=== PATIENT | male | born 1995 | race African-American/Black ===

== ENCOUNTER 2023-06-16 12:48 | Emergency (ER) | payer SELFPAY ==
[~2023-06-16] VITALS: Ht 182.9 cm; Wt 73.6 kg
[2023-06-16] MEDS ORDERED: LIDOCAINE 2% MDV 20ML VIAL SC ONE (13:20)
[2023-06-16] MEDS ORDERED: BACITRACIN OINTMENT 30GM TUBE TOP ONE (13:20)
[2023-06-16] MEDS ORDERED: CEPH500C PO (14:05)
[2023-06-16] MEDS ORDERED: BOOSTRIX VACCINE (TETANUS/DIPHTH/ACEL. PERTUSSIS) 0.5ML SYR IM.IMMUN ONE (14:05)
[2023-06-16 14:28] VITALS: BP 131/101; TEMP 98.8; O2SAT 97
[2023-06-18] MEDS ORDERED: ACET-907 PO (11:45)
== END 2023-06-16 14:32 | disposition home or self-care (01) ==
LOC: M ED 12:48
DX: S61.214A Laceration without foreign body of right ring finger without damage to nail, initial encounter (principal); Y28.0XXA Contact with sharp glass, undetermined intent, initial encounter; Z79.1 Long term (current) use of non-steroidal anti-inflammatories (NSAID); Z23 Encounter for immunization

== ENCOUNTER 2023-06-19 10:48 | Day surgery (SDC) | payer SELFPAY ==
[~2023-06-19] VITALS: Ht 180.3 cm; Wt 74.8 kg
[~2023-06-19 10:48] MED LIST: ACET-907 PO; CEPH500C PO
[2023-06-19] MEDS ORDERED: ceFAZolin SOD 2 GM in IV 1 EA IV ONE (11:30)
[2023-06-19] MEDS ORDERED: BACITRACIN OINTMENT 30GM TUBE As Ordered ONE (12:10)
[2023-06-19] MEDS ORDERED: ONDANSETRON 4MG 2ML VIAL As Ordered ONE (12:36)
[2023-06-19] MEDS ORDERED: LIDOCAINE 2% 100MG/5ML SDV (FOR ANES.) As Ordered ONE (12:36)
[2023-06-19] MEDS ORDERED: MIDAZOLAM INJ 2MG/2ML VIAL As Ordered ONE (12:36)
[2023-06-19] MEDS ORDERED: fentaNYL 100 MCG/2 ML INJECTION As Ordered ONE (12:36)
[2023-06-19] MEDS ORDERED: propofoL 200 MG/20 ML VIAL As Ordered ONE (12:36)
[2023-06-19] MEDS ORDERED: KETOROLAC 60MG 2ML VIAL As Ordered ONE (12:36)
[2023-06-19] MEDS ORDERED: ACETAMINOPHEN 1000MG 100ML IV BAG As Ordered ONE (12:39)
[2023-06-19] MEDS ORDERED: HYDROMORPHONE HCL 0.5 MG/ 0.5 ML SYRINGE IV PRN (13:30)
[2023-06-19] MEDS ORDERED: ONDANSETRON 4MG 2ML VIAL IV PRN (13:30)
[2023-06-19] MEDS ORDERED: oxyCODONE 5MG TAB PO PRN (13:30)
[2023-06-19] MEDS ORDERED: fentaNYL 100 MCG/2 ML INJECTION IV PRN (13:30)
[2023-06-19] MEDS ORDERED: LR 1,000 ML IV SCH (13:30)
[2023-06-19 14:15] VITALS: BP 139/87; TEMP 97.4; O2SAT 100
== END 2023-06-19 14:42 | disposition home or self-care (01) ==
LOC: M SDC 10:48
PROVIDERS: ATTEND Orthopaedic Surgery Hand Surgery
DX: S61.214A Laceration without foreign body of right ring finger without damage to nail, initial encounter (principal); W25.XXXA Contact with sharp glass, initial encounter; Y92.89 Other specified places as the place of occurrence of the external cause; Y93.9 Activity, unspecified; Y99.9 Unspecified external cause status; F17.210 Nicotine dependence, cigarettes, uncomplicated; F12.10 Cannabis abuse, uncomplicated
CPT/HCPCS: 26418; 76000; J0131; J0665; J0690; J1100; J1885; J2250; J2405; J3010